=== PATIENT | female | born 1970 | race American Indian/Alaskan Native ===

== ENCOUNTER 2018-10-31 19:39 | Inpatient (IN) | payer MEDICAID ==
--- NOTE | 2018-10-31 19:56 | C.PDOC ---
History Of Present Illness Patient presents to the ER requesting detox from ETOH, heroin, and cocaine, last use today. Denies SI or HI. Time Seen by Provider: 10/31/18 19:56 Chief Complaint (Nursing): Substance Abuse History Per: Patient History/Exam Limitations: no limitations Onset/Duration Of Symptoms: Hrs Current Symptoms Are (Timing): Still Present Suicide/Self Injury Attempted (Context): None Modifying Factor(s): Alcohol, Cocaine, Other (Heroin) Severity: None Pain Scale Rating Of: 0 Associated Symptoms: denies: Suicidal Thoughts, Other (Homicidal ideation) Involuntary Hold By: None Recent travel outside of the [place]: No Additional History Per: Patient Past Medical History Reviewed: Historical Data, Nursing Documentation, Vital Signs Vital Signs: Last Vital Signs Temp 98.2 F 10/31/18 19:43 Pulse 96 H 10/31/18 19:43 Resp 16 10/31/18 19:43 BP 110/76 10/31/18 19:43 Pulse Ox 100 10/31/18 19:43 - Medical History PMH: COPD Family History: States: No Known Family Hx - Social History Hx Alcohol Use: Yes Hx Substance Use: Yes - Immunization History Hx Tetanus Toxoid Vaccination: No Hx Influenza Vaccination: No Hx Pneumococcal Vaccination: No Review Of Systems Constitutional: Negative for: Fever, Chills Cardiovascular: Negative for: Chest Pain, Palpitations Respiratory: Negative for: Cough, Shortness of Breath Gastrointestinal: Negative for: Nausea, Vomiting Neurological: Negative for: Weakness, Numbness Psych: Negative for: Suicidal ideation, Other (Homicidal ideation) Physical Exam - Physical Exam Appears: Non-toxic Skin: Warm, Dry Head: Normacephalic Eye(s): bilateral: Normal Inspection Oral Mucosa: Moist Neck: Supple Chest: Symmetrical, No Tenderness Cardiovascular: Rhythm Regular Respiratory: No Rales, No Rhonchi, No Wheezing Gastrointestinal/Abdominal: Soft, No Tenderness Back: Normal Inspection Extremity: Bilateral: Atraumatic Neurological/Psych: Oriented x3 Gait: Steady ED Course And Treatment - Laboratory Results Result Diagrams: 10/31/18 21:22 10/31/18 21:22 O2 Sat by Pulse Oximetry: 100 (Room air) Pulse Ox Interpretation: Normal Progress Note: Blood work and urinalysis ordered. Crisis notified. Disposition Discussed With : Alayna Izaguirre Comment: accepted the pt on her service and took over the care at 12"44 AM Doctor Will See Patient In The: Hospital Counseled Patient/Family Regarding: Studies Performed, Diagnosis - Disposition Disposition: HOSPITALIZED Disposition Time: 19:56 Condition: FAIR Forms: [facility] (Persian) - POA Present On Arrival: None - Clinical Impression Clinical Impression: Alcohol use disorder - Scribe Statement The provider has reviewed the documentation as recorded by the Scribmike Monteiro All medical record entries made by the Scribe were at my direction and personally dictated by me. I have reviewed the chart and agree that the record accurately reflects my personal performance of the history, physical exam, medic al decision making, and the department course for this patient. I have also personally directed, reviewed, and agree with the discharge instructions and disposition. Decision To Admit - Pt Status Changed To: Hospital Disposition Of: Inpatient - Admit Certification Admit to Inpatient:: After my assessment, the patient will require hospitalization for at least two midnights. This is because of the severity of symptoms shown, intensity of services needed, and/or the medical risk in this patient being treated as an outpatient. - InPatient: Physician Admission Certification: I certify that this patient requires 2 or more midnights of care for the following reason:: After my assessment, the patient will require hospitalization for at least two midnights. This is because of the severity of symptoms shown, intensity of services needed, and/or the medical risk in this patient being treated as an outpatient. - . Bed Request Type: Detox Admitting Physician: Alayna Izaguirre Patient Diagnosis: Alcohol use disorder
[2018-10-31 21:26] LABS: BASO # 0.1 K/uL (0.0-0.2); BASO % 1.9 % (0.0-2.0); EOS # 0.3 K/uL (0.0-0.7); EOS % 7.8 % (0.0-4.0); HEMOGLOBIN 11.5 g/dL (11.0-16.0); LYMPH # 0.9 K/uL (1.0-4.3); LYMPH % 27.5 % (20.0-40.0); MEAN CELL VOLUME 93.8 fL (81.0-99.0); MEAN CORPUSCULAR HEMOGLOBIN 30.5 pg (27.0-31.0); MEAN CORPUSCULAR HGB CONC 32.6 g/dL (33.0-37.0); MEAN PLATELET VOLUME 9.3 fL (7.2-11.7); MONO # 0.2 K/uL (0.0-0.8); MONO % 7.4 % (0.0-10.0); NEUT # 1.9 K/uL (1.8-7.0); NEUT % 55.4 % (50.0-75.0); NRBC % 0.1 % (0.0-2.0); RBC 3.78 Mil/uL (3.80-5.20); RED CELL DISTRIBUTION WIDTH 13.4 % (11.5-14.5); WHITE BLOOD COUNT 3.4 K/uL (4.8-10.8)
[2018-10-31 21:41] LABS: ALB/GLOB RATIO 0.6 (1.0-2.1); ALBUMIN 3.9 g/dL (3.5-5.0); ALT/SGPT 304 U/L (9-52); AST/SGOT 555 U/L (14-36); BLOOD UREA NITROGEN 14 mg/dL (7-17); CALCIUM 8.8 mg/dl (8.6-10.4); GFR NON-AFRICAN AMERICAN > 60
[2018-10-31 23:03] LABS: SQUAMOUS EPITHIAL 3 /hpf (0-5); URINE BACTERIA RARE (<OCC); URINE BILIRUBIN NEGATIVE (NEGATIVE); URINE BLOOD NEGATIVE (NEGATIVE); URINE CLARITY Clear (Clear); URINE COLOR Amber (YELLOW); URINE GLUCOSE (UA) NORMAL (Normal); URINE LEUKOCYTE ESTERASE 3+ Leu/uL (Negative); URINE PROTEIN NEGATIVE (NEGATIVE)
[2018-11-01 00:04] LABS: BARBITURATES, UR NEGATIVE (NEGATIVE); BENZODIAZEPINES, UR NEGATIVE (NEGATIVE); OPIATES, UR NEGATIVE (NEGATIVE); PHENCYCLIDINE, UR NEGATIVE (NEGATIVE)
--- NOTE | 2018-11-01 01:15 | PCM.BM ---
<Linden Weekskeyla Styles - Last Filed: 11/01/18 01:13> Treatment Plan Problems - Problems identified on initial assessmt Knowledge Deficit: Alcohol Use Date Initiated: 11/01/18 Time Initiated: 01:14 Assessment reference: NA Status: Active Treatment assets and liabiliti Patient Assests: ADL independent, negotiates basic needs Patient Liabilities: substance abuse - Milieu Protocol Maintain good personal hygiene: daily Encourage regular showers, daily Remind patient to perform daily oral care, daily Assist patient to perform ADL's Conduct patient checks and document Observation sheet: Q15 minutes Maintain personal safety: every shift Educate patient to report safety concerns to staff, every shift Monitor environment for contraband/sharps Medication safety: Monitor for expected outcome, potential side effects: every shift, Assess barriers to learning: every shift, Assess readiness for medication education: every shift <Edvin Ca - Last Filed: 11/02/18 14:18> - Diagnosis (1) Alcohol use disorder Status: Acute Interventions: 11/01/18 14:18 * Assess 7x/week regarding severity of withdrawal * Educate regarding risks, benefits, side effects and alternatives of medications * Use Motivational Interviewing for abstinence * Use CBT for relapse prevention * Medication management for withdrawal symptoms * Encourage medication assisted treatment * <Marilee Newton - Last Filed: 11/03/18 15:23> Family Contact Family involvement: Famliy/SO not involved - Goals for Treatment Patient goals for treatment: Complete detox and discuss aftercare options with clinical staff. Discharge/Continuing Care - Education Needs Education Needs: Patient Medication, Patient Diagnosis/Disease Process, Patient Coping Skills, Patient Anger Management skills, Patient Placement options, Patient Community resources, Patient Health Practices/Safety (Lupus disease management) - Discharge Discharge Criteria: Free of agitation, Ability to care for self, No longer exhibiting s/s of withdrawal, Reduction of target symptoms Discharge to:: Other - Additional Comments 11/03/18 15:22 Aftercare TBD as pt. is unsure as of this writing. - Treatment Team Participation Patient/Family/SO Statement: 11/03/18 15:22 "I don't know what I wanna do. I was thinking about leaving early actually..." Discussed with Family/SO: No Was Patient/Family/SO present at Treatment Team Meeting: Yes
[2018-11-01] MEDS: Multiple Vitamins Tab PO SCH (10:53)
--- NOTE | 2018-11-01 13:24 | PCM.PSYCH ---
Initial Psychiatric Evaluation - Initial Psychiatric Evaluation Type of Admission: Voluntary Legal Status: Capacity Chief Complaint (in patient's own words): "I'm sick" History of Present Illness and Precipitating Events: Patient is a 47 year old female that is from her significant other, has 7 children older than 18 years of age, currently lives with her cousin in an apartment, and is currently on disability which she has been receiving for the last 4 years. Patient presented to the [facility] [place] ED on 10/31 and was admitted to the [facility] [place] detox unit for alcohol, heroin detox. On examination she is anxious but is open to questioning. She comments that she feels she is withdrawing already. She sniffs 2-3 bags of heroin daily for the last 6-8 months, with no previous periods of sobriety. She has been to detox for heroin twice in the past and has been given suboxone for her symptoms. Patient drinks a pint of vodka daily since she was 8 years old, with her longest period of sobriety being 6 months. She has never experienced any seizures with her periods of withdrawal and has been to detox for alcohol more than 10 times in the past and has been given Librium to manage her symptoms. Patient injects 4-10 bags of cocaine every other day since the age of 17, with her longest period of sobriety being 6 months. She has been to detox more than 10 times in the past. She has been to a rehabilitation unit several times in the past. She denies suicidal ideations, homicidal ideations, auditory hallucinations, and visual hallucinations. However, she admits to feeling depressed, hopeless and anxious. PMHx: Discoid lupus, COPD, PVD, Hepatitis B PsychHx: Depression, "Bipolar disorder, Schizophrenia" Non-compliant with meds FMHx: Doesn't know Medications: Seroquel, Remeron but does not use either lately Allergies: NKDA Current Medications: Active Medications Generic Name Dose Route Start Last Admin Trade Name Freq PRN Reason Stop Dose Admin Acetaminophen 650 mg 11/01/18 01:06 Tylenol 325mg Tab PO Q8H PRN Pain, moderate (4-7) Apixaban 5 mg 11/01/18 10:00 11/01/18 10:53 Eliquis PO 5 mg BID DANNI Administration Clonidine HCl 0.1 mg 11/01/18 01:02 Catapres PO Q6H PRN Withdrawal Symptoms Cyproheptadine HCl 4 mg 11/01/18 22:00 Periactin PO HS DANNI Folic Acid 1 mg 11/01/18 10:00 11/01/18 10:53 Folic Acid PO 1 mg DAILY DANNI Administration Hydroxychloroquine Sulfate 200 mg 11/01/18 10:00 11/01/18 10:53 Plaquenil PO 200 mg BID DANNI Administration Protocol Hydroxyzine HCl 25 mg 11/01/18 01:03 Atarax PO Q6H PRN Anxiety Lorazepam 1 mg 11/01/18 09:55 Ativan PO Q4H PRN Symptoms of alcohol withdrawl Lorazepam 2 mg 11/01/18 10:00 11/01/18 10:53 Ativan PO 11/06/18 09:59 2 mg Q8H DANNI Administration Taper Mirtazapine 15 mg 11/01/18 22:00 Remeron PO HS COUNTS INCLUDE 234 BEDS AT THE [facility] Multivitamins 1 tab 11/01/18 10:00 11/01/18 10:53 Hexavitamin PO 1 tab DAILY COUNTS INCLUDE 234 BEDS AT THE [facility] Administration Nitrofurantoin Macrocrystals 100 mg 11/01/18 20:00 Macrobid PO Q12H COUNTS INCLUDE 234 BEDS AT THE [facility] Protocol Ondansetron HCl 4 mg 11/01/18 01:03 Zofran Odt PO Q8H PRN Nausea/Vomiting Pantoprazole Sodium 20 mg 11/01/18 13:30 Protonix Ec Tab PO DAILY COUNTS INCLUDE 234 BEDS AT THE [facility] Thiamine HCl 100 mg 11/01/18 10:00 11/01/18 10:53 Vitamin B1 Tab PO 100 mg DAILY DANNI Administration Trazodone HCl 50 mg 11/01/18 01:02 Desyrel PO HS PRN Insomnia Past Psychiatric History - Past Psychiatric History Previous Treatment History: Inpatient Pertinent Medical Hx (Current Medical&Sleep Prob, Allergies): Allergies Allergy/AdvReac Type Severity Reaction Status Date / Time No Known Allergies Allergy Verified 10/31/18 19:45 Apixaban [Eliquis] 5 mg PO BID 10/31/18 Cyproheptadine HCl 4 mg PO TID 10/31/18 Esomeprazole Magnesium [Nexium] 40 mg PO DAILY 10/31/18 Fluconazole [Diflucan] 150 mg PO DAILY 10/31/18 Hydroxychloroquine Sulfate 200 mg PO BID 10/31/18 Quetiapine Fumarate [Seroquel] 50 mg PO BID 10/31/18 Review of Systems - Neurological Neurological: Weakness - Psychiatric Psychiatric: Abnormal Sleep Pattern, Anhedonia, Anxiety, Depression, Difficulty Concentrating, Memory Loss. absent: Homicidal Ideation, Suicidal Ideation Mental Status Examination - Personal Presentation Personal Presentation: Looks older than stated age (unkempt, poor eye contact, looks 20 years older), Dressed inappropriate to season - Affect Affect: Constricted - Motor Activity Motor Activity: Calm - Reliability in Providing Information Reliability in Providing Information: Good - Speech Speech: Organized - Mood Mood: Depressed, Anxious - Formal Thought Process Formal Thought Process: No Impairment - Cognitive Functions Orientation: Person, Place, Situation, Time Sensorium: Drowsy Attention/Concentration: Easily distracted Estimate of Intelligence: Average Judgement: Intact, as evidence by: Insight regarding need for hospitalization Memory: Recent intact, as evidence by: Ability to recall events of the day, Remote impaired as evidenced by: Inability to recall historical events - Risk Risk: Seizure, Withdrawal, Diminished functioning - Strength & Assets Inventory Strength & Assets Inventory: Cooperative - Limitations Limitations: Other DSM 5 DX - DSM 5 DSM 5 Diagnosis: Opioid withdrawal 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 Attend groups and activities Supportive therapy and psychoeducation [place] for abstinence CBT for relapse prevention Encourage MAT Refer to rehab or IOP, and self-help groups Teach healthy lifestyle methods, i.e. diet, exercise, meditation Smoking cessation with [place] Nicotine patch if needed 34 minutes Projected ELOS: 5 days - Smoking Cessation Smoking Cessation Initiated: Yes
[2018-11-01] MEDS: Pantoprazole 20 mg EC Tab PO SCH (14:45)
[2018-11-02] MEDS: Multiple Vitamins Tab PO SCH (10:03)
[2018-11-02] MEDS: Pantoprazole 20 mg EC Tab PO SCH (10:47)
--- NOTE | 2018-11-02 11:53 | PCM.PYCHPN ---
Psychiatric Progress Note - Psychiatric Progress Note Patient seen today, length of contact: 16 min Patient Chief Complaint: "I'm thinking about leaving" Problems Identified/Issues Discussed: The pt is seen, chart reviewed, case discussed with staff. Support and psychoeducation given Pt is improving slowly and needs more time, still has ongoing symptoms. Her AMA risk discussed, reassurance and extra comfort meds given No SEs from medications, risks discussed. After care discussed Medication Change: Yes (detox changes daily) Medical Record Reviewed: Yes Mental Status Examination - Cognitive Function Orientation: Person, Place, Situation, Time Memory: Impaired Attention: Poor Concentration: Poor Association: WNL Fund of Knowledge: WNL - Mood Mood: Depressed, Anxious - Affect Affect: Constricted - Speech Speech: Appropriate - Formal Thought Process Formal Thought Process: No Impairment - Suicidal Ideation Suicidal Ideation: No - Homicidal Ideation Homicidal Ideation: No Goal/Treatment Plan - Goal/Treatment Plan Need for Continued Stay: Discharge may exacerbated symptoms, Severe functional impairment Progress Toward Problem(s) and Goals/Treatment Plan: Taper with Methadone and ativan for opioids and benzos respectively Gabapentin for augmentation if needed Remeron for depression Periactin for weight loss Medical meds As needed medications All risks, benefits and alternatives of the meds discussed, and the pt agreed and understood. Attend groups and activities Supportive therapy and psychoeducation [place] for abstinence CBT for relapse prevention Encourage MAT Refer to rehab or IOP, and self-help groups Teach healthy lifestyle methods, i.e. diet, exercise, meditation Smoking cessation with [place] Nicotine patch if needed
[2018-11-03] MEDS: Multiple Vitamins Tab PO SCH (10:46)
[2018-11-03] MEDS: Pantoprazole 20 mg EC Tab PO SCH (10:55)
--- NOTE | 2018-11-03 14:30 | PCM.PYCHPN ---
Psychiatric Progress Note - Psychiatric Progress Note Patient seen today, length of contact: 16 min Patient Chief Complaint: "I'm thinking about leaving" Problems Identified/Issues Discussed: The pt is seen, chart reviewed, case discussed with staff. Support and psychoeducation given Pt is improving slowly and needs more time, still has ongoing symptoms. Her AMA risk discussed, reassurance and extra comfort meds given No SEs from medications, risks discussed. After care discussed Medication Change: Yes (detox changes daily) Medical Record Reviewed: Yes Mental Status Examination - Cognitive Function Orientation: Person, Place, Situation, Time Memory: Impaired Attention: Poor Concentration: Poor Association: WNL Fund of Knowledge: WNL - Mood Mood: Depressed, Anxious - Affect Affect: Constricted - Speech Speech: Appropriate - Formal Thought Process Formal Thought Process: No Impairment - Suicidal Ideation Suicidal Ideation: No - Homicidal Ideation Homicidal Ideation: No Goal/Treatment Plan - Goal/Treatment Plan Need for Continued Stay: Discharge may exacerbated symptoms, Severe functional impairment Progress Toward Problem(s) and Goals/Treatment Plan: Taper with Methadone and ativan for opioids and benzos respectively Gabapentin for augmentation if needed Remeron for depression Periactin for weight loss Medical meds As needed medications All risks, benefits and alternatives of the meds discussed, and the pt agreed and understood. Attend groups and activities Supportive therapy and psychoeducation [place] for abstinence CBT for relapse prevention Encourage MAT Refer to rehab or IOP, and self-help groups Teach healthy lifestyle methods, i.e. diet, exercise, meditation Smoking cessation with [place] Nicotine patch if needed
[2018-11-03 21:43] VITALS: RESP 18
--- NOTE | 2018-11-04 08:08 | PCM.PYCHDC ---
Mental Status Examination - Mental Status Examination Orientation: Person, Place, Situation, Time Memory: Intact Mood: Neutral Affect: Constricted Speech: Soft Attention: WNL Concentration: WNL Association: WNL Fund of Knowledge: WNL Formal Thought Process: No Impairment Description of patient's judgement and insight: good, fair Psychotic Thoughts and Behaviors: denies any AVH Suicidal Ideation: No Current Homicidal Ideation?: No Discharge Summary - Discharge Note Consultations:: List each consultation separately and include: 1. Reason for request. 2. Findings. 3. Follow-up Summary of Hospital Course include:: 1. Description of specific treatment plan utilized for patients during their course of treatmen. 2. Summarize the time- course for resolution of acute symptoms and/or regressed behaviors. 3. Describe issues identified and worked on during hospitalization. 4. Describe medication utilized. 5. Describe medical problems identified and treated. 6. Reassessment of suicide risk - Final Diagnosis (DSM 5) Condition upon Discharge: FAIR Disposition: HOME/ ROUTINE Prescriptions/Medication Reconciliation: Apixaban [Eliquis] 5 mg PO BID #60 tab Mirtazapine [Remeron] 15 mg PO HS #30 tab Pantoprazole [Protonix EC Tab] 20 mg PO DAILY #30 ect traZODone [Desyrel] 50 mg PO HS PRN #30 tab PRN Reason: Insomnia
[2018-11-04] MEDS: Multiple Vitamins Tab PO SCH (10:21)
[2018-11-04] MEDS: Pantoprazole 20 mg EC Tab PO SCH (10:42)
[2018-11-04 11:08] VITALS: BP 107/63; PULSE 106; TEMP 97.8; O2SAT 97
== END 2018-11-04 11:30 | disposition home or self-care (01) | DRG 744 ==
LOC: C.ER 19:39 → C.7D 11-01 00:43
PROVIDERS: ADMIT Psychiatry & Neurology Psychiatry; ATTEND Psychiatry & Neurology Psychiatry
PROC: HZ52ZZZ Individual Psychotherapy for Substance Abuse Treatment, Cognitive-Behavioral (ICD-10-PCS; principal; 2018-11-01)
PROC: HZ2ZZZZ Detoxification Services for Substance Abuse Treatment (ICD-10-PCS; 2018-11-01)
PROC: HZ59ZZZ Individual Psychotherapy for Substance Abuse Treatment, Supportive (ICD-10-PCS; 2018-11-01)
PROC: HZ56ZZZ Individual Psychotherapy for Substance Abuse Treatment, Psychoeducation (ICD-10-PCS; 2018-11-01)
PROC: HZ42ZZZ Group Counseling for Substance Abuse Treatment, Cognitive-Behavioral (ICD-10-PCS; 2018-11-01)
PROC: HZ46ZZZ Group Counseling for Substance Abuse Treatment, Psychoeducation (ICD-10-PCS; 2018-11-01)
PROC: GZHZZZZ Group Psychotherapy (ICD-10-PCS; 2018-11-01)
PROC: GZ58ZZZ Individual Psychotherapy, Cognitive-Behavioral (ICD-10-PCS; 2018-11-01)
PROC: GZ56ZZZ Individual Psychotherapy, Supportive (ICD-10-PCS; 2018-11-01)
DX: F11.23 Opioid dependence with withdrawal (principal); F32.2 Major depressive disorder, single episode, severe without psychotic features; F20.9 Schizophrenia, unspecified; L93.0 Discoid lupus erythematosus; J44.9 Chronic obstructive pulmonary disease, unspecified; F10.10 Alcohol abuse, uncomplicated; F13.230 Sedative, hypnotic or anxiolytic dependence with withdrawal, uncomplicated; F14.10 Cocaine abuse, uncomplicated; F41.1 Generalized anxiety disorder; F43.10 Post-traumatic stress disorder, unspecified; F12.20 Cannabis dependence, uncomplicated; Z91.14 Patient's other noncompliance with medication regimen; F31.9 Bipolar disorder, unspecified